=== PATIENT | male | born 1970 | race Caucasian/White ===

== ENCOUNTER 2017-05-24 06:58 | Emergency (ER) | payer OTHER ==
[~2017-05-24] VITALS: Ht 175.3 cm; Wt 115.7 kg
[2017-05-24] MEDS ORDERED: IV NORMAL SALINE 1000ML BAG 1,000 ML IV ONE (07:30)
[2017-05-24] MEDS ORDERED: ONDANSETRON PF 4 MG/2 ML VIAL. IV ONE (07:30)
[2017-05-24] MEDS ORDERED: KETOROLAC TROMETHAMINE 30 MG/ML INJ. IV ONE (07:45)
[2017-05-24] MEDS ORDERED: MORPHINE SULFATE 10 MG/ML VIAL. IV ONE (07:45)
[2017-05-24] MEDS ORDERED: diazePAM 5 MG TABLET PO ONE (07:45)
[2017-05-24] MEDS ORDERED: ONDANSETRON ODT 4 MG TAB.RAPDIS. ONE (07:55)
--- NOTE | 2017-05-24 07:59 | RAD ---
Indication low back pain for 3 weeks. AP and lateral views of the lumbar spine were obtained as well as a coned view targeted to the lumbosacral junction. Vertebral height alignment and disc spaces are normal. No acute finding is seen. There are no significant degenerative changes. IMPRESSION: Normal plain films of the lumbar spine
--- NOTE | 2017-05-24 08:03 | RAD ---
Indication tachycardia. A single view of the chest was obtained. Comparison is made to an examination 02/17/2014. There are now, in contrast to the previous examination, multiple pulmonary nodules. The etiology is unclear. While these may be a reflection of granulomatous disease or conceivably an acute infectious process metastatic disease is not excluded. There is likely a small right pleural effusion. There is no consolidated pneumonia. The heart and pulmonary vessels are normal. IMPRESSION: Multiple pulmonary nodules representing a new finding compared to the examination 3 years earlier. The etiology is unclear. See above discussion Small right pleural effusion. No consolidated pneumonia seen
--- NOTE | 2017-05-24 08:14 | PHYS DOC ---
Past Medical History Past Medical History: Cancer Additional Past Medical Histor: Rectal CA-Spread to R lung Past Surgical History: Cancer Surgery Additional Past Surgical Histo: R lung lower lobectomy, colostomy Alcohol Use: None Drug Use: None Adult General Chief Complaint Chief Complaint: LOWER BACK PAIN OR INJURY HPI HPI Patient is a 47 year old male with a previous history of colon cancer and treated, colon resection with Colostomy who presents today complaining of right low back pain that began 4 weeks ago. Patient states he was seen by the PCP and was given gabapentin and prednisone. Patient states it's not helping with his pain. Patient states the pain is radiating to the right lower extremity. Patient denies any trauma. Denies any loss of bowel/ bladder function. Patient states this pain began 4 weeks ago after he lifted an air conditioner unit. He states his PCP did x-rays and has scheduled him for MRI on . He states the x-rays were negative. Patient states he uses a walker. Review of Systems Review of Systems Constitutional: Denies fever or chills [] Eyes: Denies change in visual acuity, redness, or eye pain [] HENT: Denies nasal congestion or sore throat [] Respiratory: Denies cough or shortness of breath [] Cardiovascular: No additional information not addressed in HPI [] GI: Denies abdominal pain, nausea, vomiting, bloody stools or diarrhea [] : Denies dysuria or hematuria [] Musculoskeletal: Right low back pain Integument: Denies rash or skin lesions [] Neurologic: Denies headache, focal weakness or sensory changes [] Endocrine: Denies polyuria or polydipsia [] Current Medications Current Medications Current Medications Medications (Trade) Dose Ordered Sig/Marcus Start Time Stop Time Status Last Admin Dose Admin Dexamethasone Sodium Phosphate (Decadron) 10 mg 1X ONCE 05/24/17 09:00 05/24/17 09:01 Diazepam (Valium) 5 mg 1X ONCE 05/24/17 07:45 05/24/17 07:46 DC 05/24/17 08:01 5 MG Ketorolac Tromethamine (Toradol Im) 30 mg 1X ONCE 05/24/17 08:15 05/24/17 08:16 DC 05/24/17 08:10 30 MG Ketorolac Tromethamine (Toradol) 30 mg 1X ONCE 05/24/17 07:45 05/24/17 08:06 DC Morphine Sulfate 5 mg 1X ONCE 05/24/17 09:00 05/24/17 09:01 Ondansetron HCl (Zofran Odt) 4 mg 1X ONCE 05/24/17 08:30 05/24/17 08:31 DC 05/24/17 08:02 4 MG Ondansetron HCl (Zofran) 4 mg 1X ONCE 05/24/17 07:30 05/24/17 07:57 DC Sodium Chloride 1,000 ml @ 1,000 mls/hr 1X ONCE 05/24/17 07:30 05/24/17 07:57 DC Allergies Allergies Allergies Coded Allergies Type Severity Reaction Last Updated Verified No Known Drug Allergies 02/17/14 No Physical Exam Physical Exam Constitutional: Well developed, well nourished, no acute distress, non-toxic appearance. [] HENT: Normocephalic, atraumatic, bilateral external ears normal, oropharynx moist, no oral exudates, nose normal. [] Eyes: PERRLA, EOMI, conjunctiva normal, no discharge. [] Neck: Normal range of motion, no tenderness, supple, no stridor. [] Cardiovascular:Heart rate regular rhythm, no murmur [] Lungs & Thorax: Bilateral breath sounds clear to auscultation [] Abdomen: Left colostomy present. Bowel sounds normal, soft, no tenderness, no masses, no pulsatile masses. [] Skin: Warm, dry, no erythema, no rash. [] Back: Mild paraspinal muscle tenderness to the right lumbar spine especially the right SI joint, no midline lumbar spine tenderness, no CVA tenderness. Positive right leg straight raises Extremities: No tenderness, no cyanosis, no clubbing, ROM intact, no edema. [] Neurologic: Alert and oriented X 3, normal motor function, normal sensory function, no focal deficits noted. [] Psychologic: Affect normal, judgement normal, mood normal. [] Current Patient Data Vital Signs Vital Signs Date Time Temp Pulse Resp B/P (MAP) Pulse Ox O2 Delivery O2 Flow Rate FiO2 05/24/17 07:08 97.9 121 18 151/88 (109) 100 Room Air 97.9 EKG EKG [] Radiology/Procedures Radiology/Procedures [] Course & Med Decision Making Course & Med Decision Making Pertinent Labs and Imaging studies reviewed. (See chart for details) This is a 47-year-old male patient who presents to the ED with right low back pain that began 4 weeks ago radiating into the right lower extremity. No known trauma but the pain began after he lifted an air conditioning unit. He was seen by the PCP and has an MRI scheduled of her stay. No signs of cauda equina syndrome. Lumbar spine x-rays are negative for any acute findings. Patient arrived in the ED with a heart rate in the 120s. He was settled in the room and his heart rate has come down to 98. Lumbar spine x-rays interpreted by radiologist are negative for any acute findings. Patient was given morphine, Toradol, and Valium in the ED. He states he is feeling much better. Upon discharge the offered patient pain medicine for home use. He states no pharmacy will fill his prescription because he finished 120 tablets of oxycodone in 7 days. Patient has a prescription for cyclobenzaprine at the local pharmacy. Encouraged patient to go pick it up. He is also on prednisone. Discharged with instructions to follow-up with the PCP. Provided return precautions and discharged in stable condition. Dragon Disclaimer Dragon Disclaimer This electronic medical record was generated, in whole or in part, using a voice recognition dictation system. Departure Departure Impression: Primary Impression: Low back pain Disposition: HOME, SELF-CARE Condition: STABLE Referrals: NO PCP (PCP) Patient Instructions: Back Pain, Adult Additional Instructions: You were seen for exacerbation of low back pain. We highly recommend you follow- up with your primary care doctor as soon as possible. Consider taking an anti- inflammatory like naproxen with the Flexeril. Scripts Naproxen (NAPROXEN) 500 Mg Tablet.dr 1 TAB PO BID, #20 TAB 2 Refills Prov: [facility] 05/24/17 Problem Qualifiers Primary Impression: Low back pain Chronicity: acute Back pain laterality: right Sciatica presence: with sciatica Sciatica laterality: sciatica of right side Qualified Codes: M54.41 - Lumbago with sciatica, right side [facility] May 24, 2017 08:14
[2017-05-24] MEDS ORDERED: KETOROLAC TROMETHAMINE 60 MG/2 ML INJ. IM ONE (08:15)
[2017-05-24] MEDS ORDERED: MORPHINE SULFATE 10 MG/ML VIAL. IM ONE ×2 (08:15→09:00)
[2017-05-24] MEDS ORDERED: ONDANSETRON ODT 4 MG TAB.RAPDIS. PO ONE (08:30)
[2017-05-24] MEDS ORDERED: NAPR500T8 PO (08:51)
[2017-05-24] MEDS ORDERED: DEXAMETHASONE SOD PHOS 20 MG/5 ML VIAL. IM ONE (09:00)
[2017-05-24 09:03] VITALS: BP 131/77
== END 2017-05-24 09:25 | disposition home or self-care (01) ==
LOC: ER 06:58
DX: M54.41 Lumbago with sciatica, right side (principal); M79.604 Pain in right leg; Z93.3 Colostomy status; Z85.038 Personal history of other malignant neoplasm of large intestine
CPT/HCPCS: 71010; 72100; 96372; 99284; J1100; J1885; J2270; Q0162

== ENCOUNTER → 2017-07-30 | Outpatient (CLI) | payer OTHER ==
[~2017-07-30] MED LIST: NAPR500T8 PO
--- NOTE | 2017-07-30 16:33 | KCIC ---
INDICATION: Palpable abnormality on right. TECHNIQUE: Targeted ultrasound of the area concern was performed. FINDINGS: There are a few prominent lymph nodes which are without fatty notch and are more hypoechoic than typically noted. The largest measures 2.1 x 1.4 x 2.2 cm in size. IMPRESSION: Adenopathy at the area of palpable concern, largest node 2.1 x 1.4 x 2.2 cm. At the minimum, clinical follow-up to resolution would be recommended. If the finding persists, sampling may be required. Electronically signed by: Juan Benavidez MD (07/30/2017 4:31 PM) [id number]
--- NOTE | 2017-07-30 16:42 | KCIC ---
INDICATION: Lump at incision site on back. Surgery in May. Prior incisional drainage and antibiotic course. TECHNIQUE: Targeted ultrasound of the area of concern was performed. FINDINGS: Along the incision site is a 12 x 5 x 7 cm heterogeneously hypoechoic collection without color flow internally or peripherally. This could represent seroma or hematoma. Abscess cannot be completely excluded, although there is no peripheral color flow to confirm abscess. IMPRESSION: Postoperative fluid collection along the incisional site, most likely seroma or hematoma. Sterility cannot be confirmed. Electronically signed by: Juan Benavidez MD (07/30/2017 4:39 PM) [id number]
== END | disposition home or self-care (01) ==
LOC: KCIC 14:24
PROVIDERS: ATTEND Internal Medicine
DX: R59.9 Enlarged lymph nodes, unspecified (principal)
CPT/HCPCS: 76536; 76604